=== PATIENT | male | born 1965 | race Caucasian/White ===

== ENCOUNTER 2018-10-17 14:52 | Outpatient (CLI) | payer MEDICARE ==
--- NOTE | 2018-10-18 15:14 | MRI Report ---
Reason: ACUTE PAIN OF LEFT KNEE Procedure Date: 10/17/2018 Accession Number: [id number] / [id number] Procedure: MRI - Knee LT W/O CPT Code: FULL RESULT: EXAM: LEFT KNEE MRI WITHOUT CONTRAST EXAM DATE: 10/17/2018 03:40 PM. CLINICAL HISTORY: ACUTE PAIN OF LEFT KNEE. COMPARISON: None. TECHNIQUE: Multiplanar, multisequence T1-weighted and fluid-sensitive sequences of the knee without contrast. Other: None. FINDINGS: Bones and articular cartilage: There is an approximately 1.1 x 0.6 cm nondisplaced subcortical, probably insufficiency type, fracture at the central weightbearing aspect of the medial femoral condyle. Large patchy area of marrow edema at the medial femoral condyle. Small marginal osteophytes at the femoral condyles and medial tibial plateau. Small bone island at the lateral aspect of the proximal tibial metaphysis. No subluxation. 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 Tiny partial-thickness articular cartilage fissures at the lateral patellar facet. Medial Meniscus: Oblique tear extending through the inferior surface at the posterior horn and body. Small perimeniscal cyst adjacent to the posterior aspect of the posterior horn. Lateral Meniscus: Horizontal tear at the inner and middle thirds of the posterior horn. Cruciate Ligaments: The anterior and posterior cruciate ligaments are intact. Collateral Ligaments: The medial collateral and lateral collateral ligamentous structures are intact. Tendons: The quadriceps, patellar, semimembranosus, and popliteus tendons are unremarkable. Musculature: No edema or fatty atrophy. Other: Small joint effusion. Small popliteal cyst. No loose bodies. The medial and lateral retinacula are intact. Edema within the fat between the medial patellar retinaculum and medial femoral condyle. IMPRESSION: 1. A nondisplaced subcortical, probably insufficiency type, fracture at the medial femoral condyle. 2. 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 3. Oblique tear at the posterior horn and body of the medial meniscus. 4. Small focal horizontal tear at the inner and middle thirds of the posterior horn lateral meniscus. 5. Small joint effusion and popliteal cyst. [facility] MUSCULOSKELETAL RADIOLOGY SECTION
== END 2018-10-17 14:53 | disposition home or self-care (01) ==
LOC: DI 14:52
PROVIDERS: ATTEND Orthopaedic Surgery
DX: S72.435A Nondisplaced fracture of medial condyle of left femur, initial encounter for closed fracture (principal); M94.262 Chondromalacia, left knee; S83.242A Other tear of medial meniscus, current injury, left knee, initial encounter; S83.282A Other tear of lateral meniscus, current injury, left knee, initial encounter; M25.462 Effusion, left knee; M71.22 Synovial cyst of popliteal space [Baker], left knee

== ENCOUNTER 2019-05-14 | Emergency (ER) | payer MEDICARE, MEDICAID | END 2019-05-14 13:35 | disposition home or self-care (01) | DX: S69.91XA Unspecified injury of right wrist, hand and finger(s), initial encounter (principal); I10 Essential (primary) hypertension | CPT/HCPCS: 29125; 99282; 99283 ==

== ENCOUNTER 2019-05-22 17:18 | Outpatient (CLI) | payer MEDICARE, MEDICAID ==
--- NOTE | 2019-05-23 14:55 | MRI Report ---
Reason: PAIN IN RIGHT WRIST Procedure Date: 05/22/2019 Accession Number: [id number] / [id number] Procedure: MRI - Wrist RT W/O CPT Code: FULL RESULT: EXAM: RIGHT WRIST MRI WITHOUT CONTRAST EXAM DATE: 05/22/2019 06:20 PM. CLINICAL HISTORY: Pain in right wrist. COMPARISON: Radiographs 05/14/2019. TECHNIQUE: Multiplanar, multisequence T1-weighted and fluid-sensitive sequences of the wrist without contrast. Other: None. FINDINGS: Evaluation mildly limited by patient motion and artifact. Bones: No acute fracture or bone marrow edema. 1.0 cm old ossific fragment at the ulnar styloid, likely due to old trauma. This is located within the dorsal aspect ulnar fibers triangular fibrocartilage complex. Cartilage: Shallow partial thickness cartilage loss throughout the wrist. Intrasubstance degeneration and deep partial thickness tear central to the volar fibers ulnar insertion triangular fibrocartilage complex. Possible full-thickness extension at the volar fibers. Radial insertion intact. Ligaments: Mild edema and distortion at the dorsal and volar and scapholunate ligament. Minimal edema at the dorsal and volar bands lunotriquetral ligament. The visualized other intrinsic, extrinsic and collateral ligaments are unremarkable. Tendons: The extensor compartment I through and flexor tendons are unremarkable. Small amount of excess fluid in the extensor digitorum tendon sheath extending from the level of the visualized distal forearm to the metacarpals. Musculature: No edema or fatty atrophy. Other: The contents of the carpal tunnel, including the median nerve, are unremarkable. Guyons canal is unremarkable. No ganglion cysts. Minimal joint fluid at the radiocarpal joint. Mild subcutaneous edema dorsally. IMPRESSION: 1. No acute fracture. 2. 1.0 cm fracture fragment at the ulnar styloid, suggestive of old trauma. 3. Intrasubstance degeneration and deep partial to full-thickness tear central to volar fibers ulnar insertion triangular fibrocartilage complex. 4. Mild to moderate sprains and at least partial-thickness tearing dorsal and volar bands scapholunate ligament. 5. Mild sprains dorsal and volar bands lunotriquetral ligament. 6. Mild reactive edema versus tenosynovitis extensor digitorum tendons. 7. Mild degenerative changes in the wrist. [facility]
== END 2019-05-22 17:19 | disposition home or self-care (01) ==
LOC: DI 17:18
PROVIDERS: ATTEND Orthopaedic Surgery Sports Medicine
DX: S63.591A Other specified sprain of right wrist, initial encounter (principal); M19.031 Primary osteoarthritis, right wrist

== ENCOUNTER 2019-08-23 12:13 | Outpatient (CLI) | payer MEDICARE, MEDICAID ==
[2019-08-23 12:48] LABS: BASOPHILS # (AUTO) 0.1 10^3/uL (0.0-0.1); BASOPHILS % (AUTO) 1.4 %; EOSINOPHILS # (AUTO) 0.4 10^3/uL (0.0-0.7); EOSINOPHILS % (AUTO) 7.2 %; HGB - HEMOGLOBIN 14.7 g/dL (14.0-18.0); LYMPHOCYTES # (AUTO) 1.1 10^3/uL (1.5-3.5); LYMPHOCYTES % (AUTO) 18.8 %; MEAN CORPUSCULAR HEMOGLOBIN 31.3 pg (27.0-31.0); MEAN CORPUSCULAR HGB CONC 33.2 g/dL (32.0-36.0); MEAN CORPUSCULAR VOLUME 94.5 fL (80.0-94.0); MEAN PLATELET VOLUME 11.3 fL (7.4-11.4); MONOCYTES # (AUTO) 0.6 10^3/uL (0.0-1.0); MONOCYTES % (AUTO) 9.7 %; NEUTROPHILS # (AUTO) 3.5 10^3/uL (1.5-6.6); NEUTROPHILS % (AUTO) 62.2 %; PLT - PLATELET COUNT 207 10^3/uL (130-450); RED BLOOD COUNT 4.69 10^6/uL (4.70-6.10); RED CELL DISTRIBUTION WIDTH 12.6 % (12.0-15.0); WHITE BLOOD COUNT 5.7 x10^3/uL (4.8-10.8)
[2019-08-23 13:08] LABS: ALBUMIN/GLOBULIN RATIO 1.2 (1.0-2.2); ALKALINE PHOSPHATASE 51 IU/L (42-121); ALT ALANINE AMINOTRANSFERASE 41 IU/L (10-60); AST ASPARTATE AMINOTRANSFERASE 27 IU/L (10-42); BILIRUBIN,TOTAL 0.7 mg/dL (0.2-1.0); BUN - BLOOD UREA NITROGEN 18 mg/dL (6-20); CALCIUM 9.2 mg/dL (8.5-10.3); CARBON DIOXIDE - CO2 29 mmol/L (21-32); CHLORIDE 105 mmol/L (101-111); CHOL/HDL RATIO 6.3 (<5.0); CHOLESTEROL 241 mg/dL; CREATININE 1.2 mg/dL (0.6-1.2); GFR - MDRD 63 (>89); GLUCOSE 118 mg/dL (70-100); HDL CHOLESTEROL 38 mg/dL; LDL CHOLESTEROL,CALCULATED 176 mg/dL; LDL/HDL RATIO 4.6 (<3.6); SODIUM 140 mmol/L (135-145); TOTAL PROTEIN 7.3 g/dL (6.7-8.2); VLDL CHOLESTEROL 27 mg/dL
== END 2019-08-23 12:14 | disposition home or self-care (01) ==
LOC: LAB 12:13
PROVIDERS: ATTEND Nurse Practitioner
DX: Z79.01 Long term (current) use of anticoagulants (principal); Z79.899 Other long term (current) drug therapy; E78.5 Hyperlipidemia, unspecified; I10 Essential (primary) hypertension
CPT/HCPCS: 36415; 80053; 80061; 83721; 84443; 85025

== ENCOUNTER 2019-10-12 15:33 | Outpatient (CLI) | payer MEDICARE, MEDICAID | END 2019-10-12 15:34 | disposition home or self-care (01) | LOC: LAB 15:33 | PROVIDERS: ATTEND Nurse Practitioner | DX: R39.11 Hesitancy of micturition (principal) | CPT/HCPCS: 36415; G0103; 84153 ==

== ENCOUNTER 2019-10-31 12:04 | Emergency (ER) | payer MEDICARE, MEDICAID ==
--- NOTE | 2019-10-31 15:14 | ED Physician Documentation ---
History of Present Illness - Stated complaint Stated Complaint: R KNEE PX - Chief complaint Chief Complaint: Wound - Additonal information Additional information: This is a 54-year-old male presents with a right knee lesion. He was crawling around under his house yesterday, and afterwards he noticed a small area of pink skin on his knee, he had an a reticulated today and she was concerned it may be a tick bite, so he came into the emergency department to be checked. He denies any pain in the area, states that after he put Neosporin on it there was a little bit of green-yellowish drainage which she was able to wipe away, he denies any redness or fever. No pain with range of motion of the knee. He has not had any travel. Review of Systems Constitutional: denies: Fever Skin: reports: Abrasion (s) Musculoskeletal: denies: Extremity pain PD PAST MEDICAL HISTORY - Past Medical History Cardiovascular: Hypertension, High cholesterol GI: Diverticulitis Psych: Depression - Past Surgical History Past Surgical History: Yes General: Bowel surgery Ortho: Other - Present Medications Home Medications: Ambulatory Orders Medication Instructions Recorded Confirmed No Known Home Medications 05/14/19 05/14/19 - Allergies Allergies/Adverse Reactions: Allergies Allergy/AdvReac Type Severity Reaction Status Date / Time hydrocodone Allergy Rash Verified 10/31/19 12:22 morphine Allergy Anxiety Verified 10/31/19 12:22 - Social History Does the pt smoke?: No Smoking Status: Never smoker Does the pt drink ETOH?: No Does the pt have substance abuse?: No PD ED PE NORMAL - General General: Alert and oriented X 3 - HEENT HEENT: Atraumatic - Cardiac Cardiac: RRR - Respiratory Respiratory: No respiratory distress - Abdomen Abdomen: Normal bowel sounds - Extremities Extremities: No deformity, No tenderness to palpate, Other (There is a 2 cm d iameter small superficial abrasion with a small amount of crusting over the right patella. There is no surrounding erythema, no purulent drainage, no induration or fluctuance. Patient has full range of motion the knee without any pain. No areas of necrosis or blistering.) Results - Vitals Vitals: Vital Signs - 24 hr 10/31/19 12:18 Temperature 36.2 C L Heart Rate 69 Respiratory 16 Rate Blood Pressure 171/122 H O2 Saturation 98 Oxygen O2 Source Room air PD MEDICAL DECISION MAKING - ED course ED course: Patient presents with an obvious and mild superficial abrasion to his knee. There are no signs of insect bite, there are no ticks in [place] the winter, he was crawling around under his house and has a clear mechanism for this superf icial abrasion. There are no signs of infection. The wound appears very superficial and like it is healing well. I discussed continued wound care with him, and return precautions with any signs of infection and patient was discharged home. Departure - Departure Disposition: 01 Home, Self Care Clinical Impression: Abrasion Condition: Good Instructions: ED Abrasion Follow-Up: Zhanna Francisco ARNP, [employer]ST[employer] [Primary Care Provider] - (With any persistent symptoms) Comments: It appears you have a scrape on your knee, this actually appears to be healing quite well. I do not think this is an insect bite, I do not see signs of infection at this time. If the surrounding area has having increasing redness, or if having drainage of pus from the wound, or a fever, return to the emergency department. Keep a clean bandage over it and put a thin layer of Antibiotic ointment over the wound until it heals. Your blood pressure was elevated today, which may be simply due to stress, and is not an emergency problem but please get this rechecked with your primary care provider.
[2019-10-31 15:25] VITALS: BP 165/104
== END 2019-10-31 15:24 | disposition home or self-care (01) ==
LOC: ED 12:04
DX: S80.211A Abrasion, right knee, initial encounter (principal); W22.8XXA Striking against or struck by other objects, initial encounter; Y93.89 Activity, other specified; Y92.008 Other place in unspecified non-institutional (private) residence as the place of occurrence of the external cause; I10 Essential (primary) hypertension
CPT/HCPCS: 99281; 99282

== ENCOUNTER 2021-11-29 08:00 | Outpatient (CLI) | payer MEDICARE, MEDICAID | END 2021-11-29 23:59 | disposition home or self-care (01) | LOC: LAB.N 08:00 | PROVIDERS: ATTEND Family Medicine | DX: R09.81 Nasal congestion (principal); Z20.822 Contact with and (suspected) exposure to COVID-19 ==

== ENCOUNTER 2021-12-14 20:40 | Emergency (ER) | payer MEDICARE, MEDICAID ==
[2021-12-14 21:04] LABS: BASOPHILS # (AUTO) 0.1 10^3/uL (0.0-0.1); BASOPHILS % (AUTO) 1.2 %; EOSINOPHILS # (AUTO) 0.5 10^3/uL (0.0-0.7); EOSINOPHILS % (AUTO) 6.1 %; HCT - HEMATOCRIT 45.6 % (42.0-52.0); HGB - HEMOGLOBIN 15.7 g/dL (14.0-18.0); LYMPHOCYTES # (AUTO) 2.1 10^3/uL (1.5-3.5); LYMPHOCYTES % (AUTO) 27.5 %; MEAN CORPUSCULAR HEMOGLOBIN 31.7 pg (27.0-31.0); MEAN CORPUSCULAR HGB CONC 34.4 g/dL (32.0-36.0); MEAN CORPUSCULAR VOLUME 91.9 fL (80.0-94.0); MEAN PLATELET VOLUME 11.3 fL (7.4-11.4); MONOCYTES # (AUTO) 0.5 10^3/uL (0.0-1.0); MONOCYTES % (AUTO) 7.1 %; NEUTROPHILS # (AUTO) 4.4 10^3/uL (1.5-6.6); NEUTROPHILS % (AUTO) 57.8 %; PLT - PLATELET COUNT 214 10^3/uL (130-450); RED BLOOD COUNT 4.96 10^6/uL (4.70-6.10); RED CELL DISTRIBUTION WIDTH 12.7 % (12.0-15.0); WHITE BLOOD COUNT 7.6 x10^3/uL (4.8-10.8)
[2021-12-14 21:21] LABS: ALBUMIN 4.4 g/dL (3.2-5.5); ALBUMIN/GLOBULIN RATIO 1.5 (1.0-2.2); BILIRUBIN,TOTAL 0.4 mg/dL (0.2-1.0); CALCIUM 9.3 mg/dL (8.5-10.3); CREATININE 1.1 mg/dL (0.6-1.2); POTASSIUM 3.9 mmol/L (3.5-5.0); TOTAL PROTEIN 7.3 g/dL (6.7-8.2)
--- NOTE | 2021-12-14 22:18 | XRAY Report ---
PROCEDURE: Chest 1 View X-Ray INDICATIONS: Chest pain TECHNIQUE: One view of the chest was acquired. COMPARISON: None FINDINGS: Surgical changes and devices: None. Lungs and pleura: No pleural effusions or pneumothorax. Lungs are clear. Mediastinum: Mediastinal contours appear normal. Heart size is normal. Bones and chest wall: No suspicious bony lesions. Overlying soft tissues appear unremarkable. IMPRESSION: No acute process. Reviewed by: Gilson Hooker MD on 12/14/2021 10:17 PM [facility] Approved by: Gilson Hooker MD on 12/14/2021 10:17 PM [facility] Station ID: [id number]
--- NOTE | 2021-12-14 22:35 | ED Physician Documentation ---
History of Present Illness - Stated complaint Stated Complaint: CHEST PX, HIGH BP - Chief complaint Chief Complaint: Cardiac - History obtained from History obtained from: Patient - Additonal information Additional information: 56-year-old man with past medical history of high blood pressure, hyperlipidemia, tobacco chewer but non-smoker, with family history of [place] under the age of 65 and mother and father presents with gradual onset 3 of 10 substernal and epigastric chest pain gradual in onset over the past few hours, constant, associated with shortness of breath with ambulation and deep breathing as well as dizziness. Denies nausea, vomiting, fever, back pain, diarrhea, abdominal pain. Patient did have multiple complications of diverticulitis in the past including colostomy status post reversal. Denies abdominal pain per se but does feel slightly bloated. Does note that he has had a sinus infection past couple weeks and finished a 10-day course of amoxicillin and has an appoint with Dr. Noriega this Sunday for follow-up. Review of Systems Ten Systems: 10 systems reviewed and negative Constitutional: denies: Fever, Chills Cardiac: reports: Chest pain / pressure Respiratory: reports: Dyspnea. denies: Cough GI: denies: Nausea, Vomiting PD PAST MEDICAL HISTORY - Past Medical History Cardiovascular: Hypertension, High cholesterol GI: Diverticulitis Psych: Depression - Past Surgical History Past Surgical History: Yes General: Bowel surgery Ortho: Other - Present Medications Home Medications: Ambulatory Orders Medication Instructions Recorded Confirmed Lisinopril [Zestril] 20 mg PO 12/14/21 hydroCHLOROthiazide [Hydrodiuril] 12.5 mg PO 12/14/21 - Allergies Allergies/Adverse Reactions: Allergies Allergy/AdvReac Type Severity Reaction Status Date / Time hydrocodone Allergy Rash Verified 12/14/21 20:49 morphine Allergy Anxiety Verified 12/14/21 20:49 - Social History Does the pt smoke?: No Smoking Status: Never smoker Does the pt drink ETOH?: No Does the pt have substance abuse?: No PD ED PE NORMAL - Vitals Vital signs reviewed: Yes - General General: Alert and oriented X 3, No acute distress, Well developed/nourished - HEENT HEENT: Atraumatic, PERRL, EOMI - Neck Neck: Supple, no meningeal sign - Cardiac Cardiac: RRR - Respiratory Respiratory: No respiratory distress, Clear bilaterally - Abdomen Abdomen: Non tender, Non distended - Derm Derm: Normal color, Warm and dry - Extremities Extremities: No deformity - Neuro Neuro: Alert and oriented X 3, No motor deficit, No sensory deficit - Psych Psych: Normal mood, Normal affect Results - Vitals Vitals: Vital Signs - 24 hr 12/14/21 12/14/21 20:45 22:00 Temperature 36.4 C L Heart Rate 89 83 Respiratory 18 22 Rate Blood Pressure 151/107 H 161/101 H O2 Saturation 98 95 Oxygen O2 Source Room air - EKG (time done) 2045 Rate: Rate (enter#) (80) Rhythm: NSR [place]: Normal Intervals: Normal MD QRS: Normal Ischemia: Normal ST segments - Labs Labs: Laboratory Tests 12/14/21 12/14/21 12/14/21 20:57 20:57 20:57 WBC 7.6 RBC 4.96 Hgb 15.7 Hct 45.6 MCV 91.9 MCH 31.7 H MCHC 34.4 RDW 12.7 Plt Count 214 MPV 11.3 Neut # (Auto) 4.4 Lymph # (Auto) 2.1 [place] # (Auto) 0.5 Eos # (Auto) 0.5 Baso # (Auto) 0.1 Absolute Nucleated RBC 0.00 Nucleated RBC % 0.0 D-Dimer Sodium 140 Potassium 3.9 Chloride 102 Carbon Dioxide 28 Anion Gap 10.0 BUN 16 Creatinine 1.1 Estimated GFR (MDRD) 69 L Glucose 142 H Calcium 9.3 Total Bilirubin 0.4 AST 39 ALT 95 H Alkaline Phosphatase 57 Troponin I High Sens 9.6 Total Protein 7.3 Albumin 4.4 Globulin 2.9 Albumin/Globulin Ratio 1.5 Lipase 36 12/14/21 12/14/21 21:52 22:42 WBC RBC Hgb Hct MCV MCH MCHC RDW Plt Count MPV Neut # (Auto) Lymph # (Auto) [place] # (Auto) Eos # (Auto) Baso # (Auto) Absolute Nucleated RBC Nucleated RBC % D-Dimer 299.9 H Sodium Potassium Chloride Carbon Dioxide Anion Gap BUN Creatinine Estimated GFR (MDRD) Glucose Calcium Total Bilirubin AST ALT Alkaline Phosphatase Troponin I High Sens 8.4 Total Protein Albumin Globulin Albumin/Globulin Ratio Lipase PD MEDICAL DECISION MAKING - ED course ED course: HEART score 3 (age, risk factors). CTA negative for PE. Patient to f/u with Dr. Noriega this Sunday for referral to cardiology for further potential testing including stress test and/or CCTA. return precautions given. Departure - Departure Disposition: 01 Home, Self Care Clinical Impression: Chest pain Condition: Good Instructions: ED Chest Pain Atypical Unkn Cause Comments: You are seen in the emergency department for evaluation of chest pain. You do not have a pulmonary embolism (clot in the lungs) and do not appear to have had a heart attack. You should follow-up with Dr. Noriega at your appointment on Sunday for possible referral to cardiology for further testing. Return to the emergency department if you have any new or worsening symptoms or other concerns.
[2021-12-14] MEDS ORDERED: IOVERSOL 320 100 ML VIAL IVP ONE ×2 (23:05→23:59)
--- NOTE | 2021-12-15 00:34 | CT Report ---
PROCEDURE: ANGIO CHEST W/WO INDICATIONS: elevated ddimer, pleuritic chest pain CONTRAST: IV CONTRAST: Optiray 320 ml: 80 PO CONTRAST: *NO PO CONTRAST TECHNIQUE: After the administration of intravenous contrast, 2 mm axial images were acquired from the pulmonary apices to the posterior costophrenic angles during the arterial phase. In addition, 1 mm lung kernel and 5 mm soft tissue kernel reconstructions were performed. 3-dimensional coronal oblique maximum int ensity projection (MIP) reformats, 8 mm axial MIP, and 5 mm coronal and sagittal MPR reformats were t hen performed through the thorax. For radiation dose reduction, the following was used: automated exp osure control, adjustment of mA and/or kV according to patient size. COMPARISON: 12/14/2021 FINDINGS: Image quality: Excellent. Pulmonary arteries: Pulmonary arteries are normal in size, and demonstrate no intraluminal filling d efects to suggest central pulmonary embolism. Lungs and pleura: Lungs are clear. No pleural effusions or pneumothorax. Central and peripheral ai rways are patent. Mediastinum: Heart size is normal, without pericardial effusion. No mediastinal or hilar adenopathy . Thoracic aorta is normal in caliber and enhancement. Esophagus is normal in caliber, without hiat al hernia. Bones and chest wall: No suspicious bony lesions. Ribs and thoracic spine appear intact throughout. No axillary or supraclavicular adenopathy. Thyroid is within normal limits Abdomen: Visualized upper abdominal solid organs appear normal in the early arterial phase of enhanc ement. IMPRESSION: No acute process. No pulmonary embolus. Reviewed by: Gilson Hooker MD on 12/15/2021 12:35 AM PST Approved by: Gilson Hooker MD on 12/15/2021 12:35 AM PST Station ID: [id number]
[2021-12-15 01:23] VITALS: BP 147/98
== END 2021-12-15 01:28 | disposition home or self-care (01) ==
LOC: ED 20:40
DX: R07.89 Other chest pain (principal); Z82.49 Family history of ischemic heart disease and other diseases of the circulatory system
CPT/HCPCS: 36415; 71045; 71275; 80053; 83690; 84484; 85025; 85379; 93005; 99284; Q9967

== ENCOUNTER 2021-12-21 10:33 | Outpatient (CLI) | payer MEDICARE, MEDICAID | END 2021-12-21 10:34 | disposition home or self-care (01) | LOC: MAC.MOP 10:33 | PROVIDERS: ATTEND Physician Assistant | DX: R07.9 Chest pain, unspecified (principal); I10 Essential (primary) hypertension; E78.5 Hyperlipidemia, unspecified; Z13.1 Encounter for screening for diabetes mellitus; Z12.5 Encounter for screening for malignant neoplasm of prostate; Z13.29 Encounter for screening for other suspected endocrine disorder | CPT/HCPCS: 36415; 80053; 80061; 83036; 83880; 84439; 84443; 85025; 93246; G0103; 83721; 84153 ==

== ENCOUNTER 2021-12-21 11:17 | Outpatient (CLI) | payer MEDICARE, MEDICAID ==
[2021-12-21 11:52] LABS: BASOPHILS # (AUTO) 0.1 10^3/uL (0.0-0.1); BASOPHILS % (AUTO) 0.9 %; EOSINOPHILS # (AUTO) 0.3 10^3/uL (0.0-0.7); EOSINOPHILS % (AUTO) 3.7 %; HCT - HEMATOCRIT 43.3 % (42.0-52.0); HGB - HEMOGLOBIN 14.7 g/dL (14.0-18.0); LYMPHOCYTES # (AUTO) 1.2 10^3/uL (1.5-3.5); LYMPHOCYTES % (AUTO) 15.3 %; MEAN CORPUSCULAR HEMOGLOBIN 30.9 pg (27.0-31.0); MEAN CORPUSCULAR HGB CONC 33.9 g/dL (32.0-36.0); MEAN PLATELET VOLUME 11.5 fL (7.4-11.4); MONOCYTES # (AUTO) 0.7 10^3/uL (0.0-1.0); MONOCYTES % (AUTO) 8.5 %; NEUTROPHILS # (AUTO) 5.6 10^3/uL (1.5-6.6); NEUTROPHILS % (AUTO) 71.3 %; PLT - PLATELET COUNT 212 10^3/uL (130-450); RED BLOOD COUNT 4.76 10^6/uL (4.70-6.10); RED CELL DISTRIBUTION WIDTH 12.6 % (12.0-15.0); WHITE BLOOD COUNT 7.9 x10^3/uL (4.8-10.8)
[2021-12-21 12:11] LABS: ALBUMIN 4.3 g/dL (3.2-5.5); ALBUMIN/GLOBULIN RATIO 1.2 (1.0-2.2); ALKALINE PHOSPHATASE 47 IU/L (42-121); ALT ALANINE AMINOTRANSFERASE 53 IU/L (10-60); AST ASPARTATE AMINOTRANSFERASE 30 IU/L (10-42); BILIRUBIN,TOTAL 0.7 mg/dL (0.2-1.0); BUN - BLOOD UREA NITROGEN 23 mg/dL (6-20); CALCIUM 9.6 mg/dL (8.5-10.3); CARBON DIOXIDE - CO2 26 mmol/L (21-32); CHLORIDE 101 mmol/L (101-111); CHOL/HDL RATIO 8.2 (<5.0); CHOLESTEROL 262 mg/dL; CREATININE 1.1 mg/dL (0.6-1.2); GFR - MDRD 69 (>89); GLUCOSE 107 mg/dL (70-100); HDL CHOLESTEROL 32 mg/dL; LDL CHOLESTEROL,CALCULATED 204 mg/dL; LDL/HDL RATIO 6.4 (<3.6); POTASSIUM 4.2 mmol/L (3.5-5.0); SODIUM 137 mmol/L (135-145); TOTAL PROTEIN 7.8 g/dL (6.7-8.2); TRIGLYCERIDES 131 mg/dL; VLDL CHOLESTEROL 26 mg/dL
[2021-12-21 12:19] LABS: THYROID STIMULATING HORMONE 5.76 uIU/mL (0.34-5.60)
[2021-12-21 13:08] LABS: ESTIMATED AVERAGE GLUCOSE 120 mg/dL (70-100); HEMOGLOBIN A1c% 5.8 % (4.27-6.07)
[2021-12-21 13:51] LABS: FREE T4 (FREE THYROXINE) 0.72 ng/dL (0.58-1.64)
== END 2021-12-21 11:18 | disposition home or self-care (01) ==
LOC: LAB 11:17
PROVIDERS: ATTEND Physician Assistant
DX: I10 Essential (primary) hypertension (principal); E78.5 Hyperlipidemia, unspecified; Z13.1 Encounter for screening for diabetes mellitus; R07.9 Chest pain, unspecified; Z12.5 Encounter for screening for malignant neoplasm of prostate; Z13.29 Encounter for screening for other suspected endocrine disorder
CPT/HCPCS: 36415; 80053; 80061; 83036; 83721; 83880; 84153; 84439; 84443; 85025

== ENCOUNTER 2022-01-20 10:21 | Outpatient (CLI) | payer MEDICARE, MEDICAID | END 2022-01-20 10:22 | disposition home or self-care (01) | LOC: MAC.MOP 10:21 | PROVIDERS: ATTEND Physician Assistant | DX: R07.9 Chest pain, unspecified (principal); I49.3 Ventricular premature depolarization; I49.1 Atrial premature depolarization | CPT/HCPCS: 93248 ==

== ENCOUNTER 2023-08-25 19:32 | Emergency (ER) | payer MEDICAID, MEDICARE ==
--- NOTE | 2023-08-25 20:32 | ED Physician Documentation ---
History of Present Illness - Stated complaint Stated Complaint: HEAD LAC - Chief complaint Chief Complaint: Trauma Hd/Nk - History obtained from History obtained from: Patient - History of Present Illness Timing: Today Pain level max: 4 Pain level now: 4 - Additonal information Additional information: 57-year-old male presents to the emergency department after a ground-level fall while at his friend's house. He injured his right shoulder, neck and has a laceration to the top of his head. Unclear if he lost consciousness or not. No vomiting. No numbness or tingling. Nothing makes it better or worse. Review of Systems Constitutional: denies: Fever, Chills GI: denies: Nausea, Vomiting, Diarrhea Skin: denies: Rash Musculoskeletal: denies: Neck pain, Back pain Neurologic: denies: Headache PD PAST MEDICAL HISTORY - Past Medical History Cardiovascular: Hypertension, High cholesterol GI: Diverticulitis Psych: Depression - Past Surgical History Past Surgical History: Yes General: Bowel surgery Ortho: Other - Present Medications Home Medications: Ambulatory Orders Medication Instructions Recorded Confirmed Lisinopril [Zestril] 20 mg PO 12/14/21 hydroCHLOROthiazide [Hydrodiuril] 12.5 mg PO 12/14/21 Cyclobenzaprine [Flexeril] 10 mg PO TID PRN #20 tablet 08/25/23 Meloxicam [Mobic] 7.5 mg PO BID PRN #20 tablet 08/25/23 - Allergies Allergies/Adverse Reactions: Allergies Allergy/AdvReac Type Severity Reaction Status Date / Time hydrocodone Allergy Rash Verified 12/21/21 11:10 morphine Allergy Anxiety Verified 12/21/21 11:10 - Social History Does the pt smoke?: No Smoking Status: Never smoker Does the pt drink ETOH?: No Does the pt have substance abuse?: No PD ED PE NORMAL - Vitals Vital signs reviewed: Yes - General General: Alert and oriented X 3, No acute distress - HEENT HEENT: PERRL, Moist mucous membranes, Other (6cm curved laceration to the top of the head. no scalp hematomas. no palpable skull fractures. ) - Neck Neck: Supple, no meningeal sign, No bony TTP, Other (no midline TTP, no step off or deformity. ) - Cardiac Cardiac: RRR - Respiratory Respiratory: No respiratory distress, Clear bilaterally - Abdomen Abdomen: Soft, Non tender, Non distended - Back Back: No CVA TTP, No spinal TTP - Derm Derm: Warm and dry, No rash - Extremities Extremities: No edema, No calf tenderness / cord, Other (Mild TTP over the R shoulder, Limited ROM 2/2 pain. NVI including axillary nerve.) - Neuro Neuro: Alert and oriented X 3 Results - Vitals Vitals: Vital Signs - 24 hr 08/25/23 08/25/23 19:41 22:23 Temperature 36.7 C Heart Rate 87 83 Respiratory 18 18 Rate Blood Pressure 177/110 H 177/103 H O2 Saturation 98 97 Oxygen O2 Source Room air - Rads (name of study) head CT Relevant Findings:: Final report received, See rad report cervical spine CT Relevant Findings:: Final report received, See rad report R shoulder xray Relevant Findings:: Final report received, See rad report Procedures - Laceration (location) scalp Length in cm: 6 Wound type: Curved, Into subcut fat, Clean Neurovascular status: Motor intact Tendon involvement: Tendon intact, Tendon Injury Anesthesia: LET Wound preparation: Irrigated copiously NS, Wound explored, To the base Skin layer closure: [place] Other: Patient tolerated well, No complications, Neurovascular intact, Tetanus UTD PD Medical Decision Making - ED course Complexity details: reviewed results, re-evaluated patient, considered differential, d/w patient, d/w family ED course: 57-year-old male status post a ground-level fall has a large laceration to the scalp. This was repaired with ayleen. Tolerated well. Tdap given. Toradol and Flexeril given as well for the neck spasm. Neurovascular intact. Patient was informed of the abnormal shoulder x-ray, follow-up with his PCP for this. Patient is well-appearing, nontoxic. Afebrile. No other acute findings on head CT, cervical spine CT or shoulder x-ray. Warnings of infection and instructions on wound care given at bedside. Also counseled on how to minimize scarring. Patient counseled regarding signs and symptoms for which I believe and urgent re-evaluation would be necessary. Patient with good understanding of and agreement to plan and is comfortable going home at this time This document was made in part using voice recognition software. While efforts are made to proofread this document, sound alike and grammatical errors may occur. Departure - Departure Disposition: 01 Home, Self Care Clinical Impression: Neck muscle spasm Closed head injury Qualifiers: Encounter type: initial encounter Qualified Code(s): S09.90XA - Unspecified injury of head, initial encounter Scalp laceration Qualifiers: Encounter type: initial encounter Qualified Code(s): S01.01XA - Laceration without foreign body of scalp, initial encounter Condition: Good Instructions: ED Head Injury Closed, ED Sprain Strain Neck Follow-Up: Julieth Noriega PA [Primary Care Provider] - (in 10 -14 days for staple removal ) Prescriptions: Cyclobenzaprine [Flexeril] 10 mg PO TID PRN #20 tablet PRN Reason: Spasms Meloxicam [Mobic] 7.5 mg PO BID PRN #20 tablet PRN Reason: Pain Comments: Please follow-up with your doctor in approximately 10 to 14 days for staple removal. Your head CT and cervical spine CT did not show any acute abnorm alities tonight. Your shoulder x-ray does not show any acute abnormalities but there is a radiodensity in the right humeral head, this may have been present on prior imaging. They are recommending at a minimum follow-up sequential plain films, alternatively a contrast-enhanced MRI scan in the near term is recommended with your doctor. Please return if you worsen. Your prescriptions were sent to [facility] PROCEDURE: Shoulder 3 View RT INDICATIONS: fall, shoulder pain TECHNIQUE: 3 views of the shoulder were acquired. COMPARISON: None. FINDINGS: Bones: No fractures or dislocations. At the right humeral head and neck area there is a chondroid matrix radiodensity of uncertain etiology and clinical significance. A similar abnormality can be seen on prior chest plain film imaging from 12/14/2021 in the same area. Note is made of moderate AC joint osteoarthritis but no trauma.. Visualized ribs appear intact. Soft tissues: No suspicious soft tissue calcifications. The visualized lungs are within normal limits. IMPRESSION: No acute bony abnormality. No acute trauma found, moderate AC joint osteoarthritis. The chondroid matrix radiodensity within the right humeral head and neck appears to have been previously present but a comparable images are not available for review. There may be increased radiodensity at the lower half of this abnormality. By plain film imaging differentiation between enchondroma and low grade chondrosarcomas is not possible. Follow-up by sequential plain films likely is warranted unless unusual symptomatology is referrable to this area. In that case contrast-enhanced MR scanning in the near term would be recommended. Forms: PCP List
[2023-08-25] MEDS ORDERED: KETOROLAC 60 MG/2 ML VIAL IM STA (20:41)
[2023-08-25] MEDS ORDERED: LIDOCAINE-EPINEPH-TETRACAINE 3 ML SYRINGE TOP STA (20:42)
[2023-08-25] MEDS ORDERED: TETANUS/DIPHTHERIA/PERTUSSIS 0.5 ML SYRINGE IM ONE (20:49)
--- NOTE | 2023-08-25 21:06 | XRAY Report ---
PROCEDURE: Shoulder 3 View RT INDICATIONS: fall, shoulder pain TECHNIQUE: 3 views of the shoulder were acquired. COMPARISON: None. FINDINGS: Bones: No fractures or dislocations. At the right humeral head and neck area there is a chondroid ma trix radiodensity of uncertain etiology and clinical significance. A similar abnormality can be seen on prior chest plain film imaging from 12/14/2021 in the same area. Note is made of moderate AC joint o steoarthritis but no trauma.. Visualized ribs appear intact. Soft tissues: No suspicious soft tissue calcifications. The visualized lungs are within normal limi ts. IMPRESSION: No acute bony abnormality. No acute trauma found, moderate AC joint osteoarthritis. The chondroid matrix radiodensity within the right humeral head and neck appears to have been previously present but a comparable images are not available for review. There may be increased radiodensity at the lower half of this abnormality. By p suyapa film imaging differentiation between enchondroma and low grade chondrosarcomas is not possible. Follow-up by sequential plain films likely is warranted unless unusual symptomatology is referrable t o this area. In that case contrast-enhanced MR scanning in the near term would be recommended. Reviewed by: Edin Pal MD on 08/25/2023 9:04 PM PST Approved by: Edin Pal MD on 08/25/2023 9:04 PM PST Station ID: [id number]
[2023-08-25] MEDS ORDERED: CYCLOBENZAPRINE 10 MG TABLET PO STA (22:18)
--- NOTE | 2023-08-25 22:19 | CT Report ---
PROCEDURE: CERVICAL SPINE WO INDICATIONS: fall, neck pain TECHNIQUE: Noncontrast 3 mm thick sections acquired from the skull base to the T4 level. Sagittal and coronal r eformats were then constructed. For radiation dose reduction, the following was used: automated exp osure control, adjustment of mA and/or kV according to patient size. COMPARISON: None. FINDINGS: Image quality: Excellent. Bones: No fractures or dislocations. Visualized superior ribs are intact. Soft tissues: Prevertebral soft tissues are normal in thickness. No paravertebral hematomas. No ap ical pneumothoraces. IMPRESSION: No trauma found. Normal alignment. Reviewed by: Edin Pal MD on 08/25/2023 10:18 PM PST Approved by: Edin Pal MD on 08/25/2023 10:18 PM PST Station ID: [id number]
--- NOTE | 2023-08-25 22:20 | CT Report ---
PROCEDURE: HEAD WO INDICATIONS: fall, head injury TECHNIQUE: Noncontrast 4.5 mm thick angled axial sections acquired from the foramen magnum to the vertex. For r adiation dose reduction, the following was used: automated exposure control, adjustment of mA and/or kV according to patient size. COMPARISON: None. FINDINGS: Image quality: Excellent. CSF spaces: Basal cisterns are patent. No extra-axial fluid collections. Ventricles are normal in size and shape. Brain: No midline shift. No intracranial masses or hemorrhage. Roberts-white matter interface is norm al. Skull and face: Calvarium and visualized facial bones are intact, without suspicious lesions. Sinuses: Visualized sinuses and mastoids are clear except for concentric moderate mucosal thickening without air-fluid level involving the maxillary sinuses symmetrically.. IMPRESSION: No acute intracranial pathology. Note is made of moderate bilateral maxillary sinus mucosal thickening, chronic in appearance. Reviewed by: Edin Pal MD on 08/25/2023 10:19 PM PST Approved by: Edin Pal MD on 08/25/2023 10:19 PM PST Station ID: [id number]
[2023-08-25 22:30] VITALS: BP 177/103; O2SAT 97
== END 2023-08-25 22:51 | disposition home or self-care (01) ==
LOC: ED 19:32
DX: S01.01XA Laceration without foreign body of scalp, initial encounter (principal); S09.90XA Unspecified injury of head, initial encounter; W18.39XA Other fall on same level, initial encounter; Y93.89 Activity, other specified; Y92.009 Unspecified place in unspecified non-institutional (private) residence as the place of occurrence of the external cause; M62.838 Other muscle spasm; R93.6 Abnormal findings on diagnostic imaging of limbs
CPT/HCPCS: 12002; 70450; 72125; 73030; 90471; 90715; 96372; 99284; A9270

== ENCOUNTER 2023-08-31 11:30 | Emergency (ER) | payer MEDICARE ==
--- NOTE | 2023-08-31 12:32 | ED Physician Documentation ---
History of Present Illness - Stated complaint Stated Complaint: RT SHOULDER,NECK PX - Chief complaint Chief Complaint: Ext Problem - History obtained from History obtained from: Patient - Additonal information Additional information: This is a 57-year-old male who presents with ongoing right shoulder pain after a fall several days ago. The patient fell into a entertainment center and sustained a head laceration. He was seen at that time here in the ER and had a head and cervical spine CT which were reassuring. Jose placed and he was given Flexeril and meloxicam for the shoulder pain. He had x-rays at that time which was negative for acute fracture but did show a bony lesion which she was advised to follow-up on. Patient states that since the fall he has had ongoing right shoulder pain and has had no relief with the muscle relaxers or meloxicam. He has pain primarily in the posterior right shoulder into the scapula, no anterior shoulder pain. He is able to move it though decreased from baseline. He also has some numbness status from the elbow up on the right side and the entire left arm which has been present since the injury. He does not have any weakness of the left arm and is able to continue left arm ADLs. He is requesting pain medication for this issue. Review of Systems Constitutional: reports: Reviewed and negative Cardiac: reports: Reviewed and negative Respiratory: reports: Reviewed and negative GI: reports: Reviewed and negative : reports: Reviewed and negative Skin: reports: Reviewed and negative Musculoskeletal: reports: Extremity pain, Joint pain Neurologic: reports: Numbness PD PAST MEDICAL HISTORY - Past Medical History Past Medical History: Yes Cardiovascular: Hypertension, High cholesterol GI: Diverticulitis Psych: Depression - Past Surgical History Past Surgical History: Yes General: Bowel surgery Ortho: Other - Present Medications Home Medications: Ambulatory Orders Medication Instructions Recorded Confirmed Lisinopril [Zestril] 20 mg PO DAILY 12/14/21 08/31/23 hydroCHLOROthiazide [Hydrodiuril] 12.5 mg PO DAILY 12/14/21 08/31/23 Cyclobenzaprine [Flexeril] 10 mg PO TID PRN #20 tablet 08/25/23 08/31/23 Meloxicam [Mobic] 7.5 mg PO BID PRN #20 tablet 08/25/23 08/31/23 Oxycodone HCl/Acetaminophen 1 each PO Q8H PRN #12 tab 08/31/23 [Oxycodone-Acetaminophen 5-325] predniSONE [Deltasone] 40 mg PO DAILY 5 Days #10 tablet 08/31/23 - Allergies Allergies/Adverse Reactions: Allergies Allergy/AdvReac Type Severity Reaction Status Date / Time hydrocodone Allergy Rash Verified 12/21/21 11:10 morphine Allergy Anxiety Verified 12/21/21 11:10 - Social History Does the pt smoke?: No Smoking Status: Never smoker Does the pt drink ETOH?: No Does the pt have substance abuse?: No PD ED PE NORMAL - Vitals Vital signs reviewed: Yes - General General: Alert and oriented X 3, No acute distress, Well developed/nourished - HEENT HEENT: Atraumatic ([place] in place from prior injury), Moist mucous membranes - Neck Neck: Supple, no meningeal sign, No bony TTP, C-Spine cleared by NEXUS criteria - Cardiac Cardiac: RRR, No murmur - Respiratory Respiratory: No respiratory distress, Clear bilaterally - Derm Derm: Normal color, Warm and dry, No rash - Extremities Extremities: No deformity, No edema, Other (Right posterior shoulder and scapular tenderness, no swelling or deformity of the right shoulder, no impingement signs, 4.5 out of 5 strength, minimally decreased ROM primarily overhead, full left arm ROM and 5/5 strength. ) - Neuro Neuro: Alert and oriented X 3 Eye Opening: Spontaneous Motor: Obeys Commands - Psych Psych: Normal mood, Normal affect Results - Vitals Vitals: Vital Signs - 24 hr 08/31/23 08/31/23 11:50 12:48 Temperature 36.2 C L 36.5 C Heart Rate 95 88 Respiratory 16 18 Rate Blood Pressure 140/90 H 130/88 H O2 Saturation 99 98 Oxygen O2 Source Room air - Rads (name of study) No standard instances Relevant Findings:: Other (reviewed images from last visi) PD Medical Decision Making - ED course Complexity details: reviewed results, considered differential, d/w patient ED course: 57-year-old male presents with right shoulder pain after a fall several days ago. He was evaluated at that time and had a reassuring head and cervical spine CT and x-ray of the right shoulder as described above. He is having ongoing right shoulder pain that is not relieved by Flexeril and meloxicam. On exam, patient has no swelling or erythema to the shoulder, there is some pain in the posterior shoulder into the scapula that appears to be more muscular, there is no sign of impingement or rotator cuff tear on physical exam. He did not see indication for repeat shoulder x-ray but did review the prior x-ray and advised the patient that he likely will eventually need an MRI or repeat x-ray of the right shoulder to monitor right shoulder lesion and he states understanding. He does have some radicular symptoms and therefore I Gissell give him a short course of prednisone and he can continue as needed muscle relaxer, and I will give as needed oxycodone to use sparingly only if needed. The patient states understanding and risks and benefits were discussed. He likely will need physical therapy for his shoulder injury and he has follow-up with his PCP next week Which she was encouraged to keep. Return precautions viewed if new or wors ening symptoms. Departure - Departure Disposition: 01 Home, Self Care Clinical Impression: Shoulder pain, acute Qualifiers: Laterality: right Qualified Code(s): M25.511 - Pain in right shoulder Condition: Good Instructions: Shoulder Probs Prescriptions: predniSONE [Deltasone] 40 mg PO DAILY 5 Days #10 tablet Oxycodone HCl/Acetaminophen [Oxycodone-Acetaminophen 5-325] 1 each PO Q8H PRN #12 tab PRN Reason: Pain >8 Comments: Please continue follow up with your primary doctor for your shoulder pain. I reviewed your prior xray and there are no fractures in the area that is bothersome to you. You may have a nerve impingement causing your pain. For this, I have given you a short course of steroids. I am also giving you a short course of oxycodone for your pain. Shoulder injuries can take months to heal and often require physical therapy. If no improvement with physical therapy, then the next step would be an MRI. You will need to follow up regarding the shoulder lesion seen on your prior xray as previously instructed. I am prescribing a short course of narcotic pain medication for you. These are potentially dangerous and addictive medications that should be used carefully. These medications may constipate you. Take an nfmw-wry-twsespi stool softener (docusate) twice daily with plenty of water while taking these medications. If you go 24 hours without a bowel movement, take vlwu-mrr-fxwfeuo miralax, per package instructions. Do not drink or drive while taking these medications. If you received narcotic or sedating medications while in the emergency department, do not drive for 24 hours. Store this medication in a safe, secure place and out of reach of children. It is a violation of federal law to give or sell this medication to another person or to use in a manner other than prescribed. The ED will not refill narcotic prescriptions, including prescriptions lost or stolen. To dispose of unwanted medications: 1. [facility] provides a [facility] box for medication in pill form only (no liquids) 8:00 am to 4:30 p.m. Sunday-Sunday in the lobby of the [facility], [address] Empty pills into ziplock bag before disposal. Call [phone] for information. 2.[employer] is a free service available to all [facility] residents. Go to [email or web address] Note that many narcotic pain relievers also contain Tylenol/acetaminophen. Please ensure that your total dose of acetaminophen from all sources does not exceed 3 g (3000 mg) per day. Forms: PCP List Discharge Date/Time: 08/31/23 12:48
[2023-08-31 12:50] VITALS: BP 130/88; O2SAT 98
== END 2023-08-31 12:48 | disposition home or self-care (01) ==
LOC: ED 11:30
DX: M25.511 Pain in right shoulder (principal); W19.XXXA Unspecified fall, initial encounter; I10 Essential (primary) hypertension; E78.00 Pure hypercholesterolemia, unspecified; Z79.899 Other long term (current) drug therapy
CPT/HCPCS: 99282; 99283

== ENCOUNTER 2023-09-20 12:11 | Outpatient (CLI) | payer MEDICARE ==
[~2023-09-20 12:11] MED LIST: GADOTERATE MEGLUMINE 10 MMOL/20 ML VIAL ONE
[2023-09-20] MEDS ORDERED: GADOTERATE MEGLUMINE 10 MMOL/20 ML VIAL IVP ONE (13:45)
--- NOTE | 2023-09-20 16:58 | MRI Report ---
PROCEDURE: SHOULDER W/WO - RT INDICATIONS: RIGHT SHOULDER PAIN, ABN IMAGING TECHNIQUE: Noncontrast oblique coronal T1 spin echo and T2 fast spin echo with fat saturation, oblique sagittal T1 spin echo and T2 fast spin echo with fat saturation, axial T1 spin echo and T2 fast spin echo with fat saturation through the shoulder. Post-contrast oblique coronal, oblique sagittal, and axial T1 spin echo with fat saturation through the shoulder. COMPARISON: Shoulder radiograph dated 08/25/2023 FINDINGS: Image quality: Excellent. Rotator cuff: Low-grade articular and bursal surface partial-thickness tear involving distal supraspi natus at its insertion on humeral head is seen extending to muscular tendinous junction. Distal infra spinatus tendinosis is seen. Low-grade intrasubstance partial thickness involving distal subscapulari s is also noted. No full-thickness rotator cuff tendon rupture. Mild supraspinatus muscle atrophy is seen on sagittal images. Bones and bursae: There is a lobulated and heterogeneously T1 hypointense and T2 hyperintense structu re within measuring space of proximal humeral shaft extending to surgical neck measures up to 3.2 x 2 .4 x 3.8 cm in size series 3 image 14 and series 10 image 12. After IV contrast infusion, heterogeneo us enhancement is noted within this structure. No surrounding edema or cortical erosion is seen. No a bnormal periosteal reactions. Moderate acromioclavicular joint osteoarthritic changes are seen with j oint space narrowing and downward osteophyte formation depressing on musculotendinous junction of sup raspinatus. No fracture or dislocation. No other area of abnormal intraosseous enhancement. No signif icant joint effusion or subacromial subdeltoid bursal fluid. Capsule and soft tissues: No suspicious soft tissue enhancement. In the absence of intra-articular contrast, the labrum and glenohumeral ligaments appear intact. The long head of the biceps tendon de monstrates normal location and morphology. The rotator interval appears normal, without fibrosis. T he coracohumeral ligament is normal in thickness. IMPRESSION: 1. 3.2 x 2.4 x 3.8 cm heterogeneously T2 hyperintense and T1 hypointense lesion within medullary spac e of proximal humeral shaft extending to the level of surgical neck and show heterogeneous contrast e nhancement and likely represent benign enchondroma. No associated marrow edema or cortical erosion. N o abnormal periosteal reaction. Clinical and radiographic follow-up is recommended. 2. No enhancing soft tissue mass or drainable fluid collection. 3. Moderate acromial clavicular joint osteoarthritis. No fracture or dislocation. No other area of ab normal intraosseous enhancement. 4. Low-grade articular and bursal surface partial-thickness tear involving distal supraspinatus exten ding to muscular tendinous junction. Distal infraspinatus tendinosis. Low-grade intrasubstance partia l thickness involving distal subscapularis. No full-thickness rotator cuff tendon rupture. Mild supra spinatus muscle atrophy. 5. No gross focal labral tear. Reviewed by: Boone Arriaga MD on 09/20/2023 4:57 PM PST Approved by: Boone Arriaga MD on 09/20/2023 4:57 PM PST Station ID: [id number]
== END 2023-09-20 12:12 | disposition home or self-care (01) ==
LOC: LAB 12:11
PROVIDERS: ATTEND Physician Assistant
DX: M19.011 Primary osteoarthritis, right shoulder (principal); M75.111 Incomplete rotator cuff tear or rupture of right shoulder, not specified as traumatic; M75.81 Other shoulder lesions, right shoulder; M62.511 Muscle wasting and atrophy, not elsewhere classified, right shoulder
CPT/HCPCS: 73223; A9575

== ENCOUNTER 2023-10-27 11:01 | Outpatient (CLI) | payer MEDICARE ==
[2023-10-27 11:22] LABS: BASOPHILS # (AUTO) 0.1 10^3/uL (0.0-0.1); BASOPHILS % (AUTO) 1.2 %; EOSINOPHILS # (AUTO) 0.5 10^3/uL (0.0-0.7); HCT - HEMATOCRIT 45.3 % (42.0-52.0); HGB - HEMOGLOBIN 14.7 g/dL (14.0-18.0); LYMPHOCYTES # (AUTO) 1.4 10^3/uL (1.5-3.5); LYMPHOCYTES % (AUTO) 18.8 %; MEAN CORPUSCULAR HEMOGLOBIN 31.5 pg (27.0-31.0); MEAN CORPUSCULAR HGB CONC 32.5 g/dL (32.0-36.0); MEAN PLATELET VOLUME 10.9 fL (7.4-11.4); MONOCYTES # (AUTO) 0.7 10^3/uL (0.0-1.0); MONOCYTES % (AUTO) 9.5 %; NEUTROPHILS # (AUTO) 4.7 10^3/uL (1.5-6.6); NEUTROPHILS % (AUTO) 62.9 %; PLT - PLATELET COUNT 221 10^3/uL (130-450); RED BLOOD COUNT 4.67 10^6/uL (4.70-6.10); RED CELL DISTRIBUTION WIDTH 12.8 % (12.0-15.0); WHITE BLOOD COUNT 7.5 x10^3/uL (4.8-10.8)
[2023-10-27 11:47] LABS: ALBUMIN 4.3 g/dL (3.2-5.5); ALBUMIN/GLOBULIN RATIO 1.5 (1.0-2.2); ALKALINE PHOSPHATASE 47 IU/L (42-121); ALT ALANINE AMINOTRANSFERASE 26 IU/L (10-60); AST ASPARTATE AMINOTRANSFERASE 17 IU/L (10-42); BILIRUBIN,TOTAL 0.7 mg/dL (0.2-1.0); BUN - BLOOD UREA NITROGEN 21 mg/dL (6-20); CALCIUM 9.8 mg/dL (8.5-10.3); CARBON DIOXIDE - CO2 30 mmol/L (21-32); CHLORIDE 103 mmol/L (101-111); CHOL/HDL RATIO 6.8 (<5.0); CHOLESTEROL 265 mg/dL; CREATININE 1.2 mg/dL (0.6-1.3); GFR - MDRD 62 (>89); GLUCOSE 128 mg/dL (74-104); HDL CHOLESTEROL 39 mg/dL; LDL CHOLESTEROL,CALCULATED 159 mg/dL; LDL/HDL RATIO 4.1 (<3.6); POTASSIUM 4.7 mmol/L (3.5-4.5); SODIUM 140 mmol/L (135-145); TOTAL PROTEIN 7.1 g/dL (6.4-8.9); TRIGLYCERIDES 333 mg/dL (48-352); VLDL CHOLESTEROL 67 mg/dL
[2023-10-27 12:03] LABS: THYROID STIMULATING HORMONE 2.35 uIU/mL (0.34-5.60)
== END 2023-10-27 11:02 | disposition home or self-care (01) ==
LOC: LAB 11:01
PROVIDERS: ATTEND Physician Assistant
DX: I10 Essential (primary) hypertension (principal); E78.5 Hyperlipidemia, unspecified; Z12.5 Encounter for screening for malignant neoplasm of prostate
CPT/HCPCS: 36415; 80053; 80061; 84443; 85025; G0103; 83721; 84153